=== PATIENT | female | born 1995 | race Hispanic/Latino ===

== ENCOUNTER → 2018-03-23 | Outpatient (CLI) | payer OTHER | END | disposition home or self-care (01) | LOC: RAH 14:11 → EEVIPCON 14:11 | PROVIDERS: ATTEND Internal Medicine | DX: N60.01 Solitary cyst of right breast (principal); N63.20 Unspecified lump in the left breast, unspecified quadrant; N64.4 Mastodynia | CPT/HCPCS: 76641 ==